=== PATIENT | female | born 1980 | race Caucasian/White ===

== ENCOUNTER 2016-08-05 10:11 | Inpatient (IN) | payer OTHER ==
[~2016-08-05 10:11] MED LIST: D5 1/2 NS 1000 ML 1,000 ML IV ONE; D5 1/2 NS 1000ML W PITOCIN 20 U/L 1,000 ML IV ONE; D5LR 1000ML W PITOCIN 10 U/L 1,000 ML IV ONE; PITOCIN ONE
[2016-08-05] MEDS ORDERED: REGLAN INJ 10 MG VIAL IVP PRN ×2 (10:51→18:51)
[2016-08-05] MEDS ORDERED: MORPHINE SULFATE INJ 2 MG IVP PRN (10:51)
[2016-08-05] MEDS ORDERED: PHENERGAN INJ 25 MG IV PRN ×3 (10:51→18:51)
[2016-08-05] MEDS ORDERED: PITOCIN IVP ONE (10:51)
[2016-08-05] MEDS ORDERED: NUBAIN INJ 200 MG VIAL MULTIDOSE IVP PRN (10:51)
[2016-08-05] MEDS ORDERED: PITOCIN 10 UNITS in D5 LR 1000 ML 1,000 ML IV PRN (10:51)
[2016-08-05] MEDS ORDERED: D5 1/2 NS 1000 ML 1,000 ML IV SCH (11:00)
[2016-08-05] MEDS ORDERED: NAROPIN EPIDURAL 0.2% 97 ML with FENTANYL INJ 250 mcg 150 MCG EPI PRN ×2 (11:25)
[2016-08-05] MEDS ORDERED: LR 1000 ML IV 1,000 ML IV ONE ×2 (11:25→12:58)
[2016-08-05 11:34] LABS: BASOPHILS % (AUTO) 0.5 % (0.2-1.0); EOSINOPHILS # (AUTO) 0.1 x10^3/uL (0.0-0.2); HEMATOCRIT 35.4 % (36.0-47.0); HEMOGLOBIN 11.8 g/dL (12.0-16.0); LYMPHOCYTES % (AUTO) 12.7 % (21.0-51.0); MEAN CORPUSCULAR HEMOGLOBIN 26.3 pg (27.0-34.0); MEAN CORPUSCULAR HGB CONC 33.4 g/dL (33.0-35.0); MEAN PLATELET VOLUME 11.7 fL (7.4-11.0); MONOCYTES # (AUTO) 0.4 x10^3/uL (0.3-0.8); MONOCYTES % (AUTO) 4.9 % (0.0-13.0); NEUTROPHILS # (AUTO) 6.7 x10^3/uL (2.2-4.8); NEUTROPHILS % (AUTO) 80.9 % (42.0-75.0); PLATELET COUNT 105 X10^3/uL (150.0-450.0); RED BLOOD COUNT 4.48 X10^6/uL (3.5-5.4); WHITE BLOOD COUNT 8.3 X10^3/uL (3.6-10.0)
--- NOTE | 2016-08-05 12:06 | DR.OB ---
OB Quick Note - Assessment/Plan Assessment/Plan: L&D 08/05/16 at 12:03pm Pitocin=6mu/min. S-No complaint except CTX. O-Afebrile,VSS MEF=332 with good LTV, +accel, no decel. CTX=q 2 to 2 1/2 min., about 35-45mmHg CVX=3cm/50%/0 A-IUP at 38 4/7 weeks with SROM P-Cont. pitocin augmentation Anticipate
[2016-08-05 12:13] LABS: BLOOD UREA NITROGEN 5 mg/dL (7-18); CALCIUM 8.5 mg/dL (8.5-10.1); CARBON DIOXIDE 21.7 mmol/L (21-32); CHLORIDE 106 mmol/L (98-107); CREATININE 0.61 mg/dL (0.55-1.02); GLUCOSE 83 mg/dL (65-99); SODIUM 140 mmol/L (136-145); eGFR BLACK RACES > 60 (>60); eGFR NON BLACK RACES > 60 (>60)
[2016-08-05] MEDS ORDERED: FENTANYL INJ 100 mcg ONE ×2 (12:57→16:33)
[2016-08-05] MEDS ORDERED: NAROPIN EPIDURAL 0.2% + FENTANYL 90MCG 60 ML EPI ONE (12:57)
[2016-08-05] MEDS ORDERED: NUBAIN INJ 10 ONE (16:14)
[2016-08-05] MEDS ORDERED: MOTRIN TAB 800 MG PO PRN ×2 (17:20→18:51)
--- NOTE | 2016-08-05 17:20 | DR.OB ---
OB Quick Note - Assessment/Plan Assessment/Plan: Delivery Note [employer] 08/05/16 at 5:15pm Patient complete and pushing. Head delivered over intact perineum. No nuchal cord. Nose and mouth bulb suctioned. Body delivered over intact perineum. Cord clamped x 2 and cut. handed to attendant. Cord sent for gases. Placenta delivered spontaneously / intact / 3 vessel cord. No CVX tears noted. A small midline second degree tear noted and repaired with 0-vicryl in usual fashion. Viable female , VTX/OA, wt=8'6" and 9/9, stable to NBN. Mother stable to RR. HXJ=[id number].
[2016-08-05] MEDS ORDERED: D5 1/2 NS 1000 ML 1,000 ML with PITOCIN 20 UNITS IV SCH ×2 (18:00)
[2016-08-05] MEDS ORDERED: ADACEL TDaP IM ONE (18:51)
[2016-08-05] MEDS ORDERED: DERMOPLAST SPRAY TOP PRN (18:51)
[2016-08-05] MEDS ORDERED: MILK OF MAGNESIA PO PRN (18:51)
[2016-08-05] MEDS ORDERED: AMBIEN PO PRN (18:51)
[2016-08-05] MEDS: ZANTAC PO SCH (20:07)
[2016-08-06] MEDS ORDERED: D5 1/2 NS 1000 ML 1,000 ML with PITOCIN 20 UNITS IV SCH ×2 (02:00)
[2016-08-06 05:25] LABS: HEMATOCRIT 33.9 % (36.0-47.0); HEMOGLOBIN 11.1 g/dL (12.0-16.0)
[2016-08-06] MEDS ORDERED: PRENATAL PLUS PO SCH (09:00)
[2016-08-06] MEDS: ZANTAC PO SCH (09:13)
[2016-08-06 17:32] VITALS: BP 128/78
== END 2016-08-06 18:10 | disposition home or self-care (01) | DRG 775 ==
LOC: LD 10:11 → MED/SURG 19:42
PROVIDERS: ADMIT Specialist; ATTEND Specialist
PROC: 10E0XZZ Delivery of Products of Conception, External Approach (ICD-10-PCS; principal; 2016-08-05)
PROC: 0KQM0ZZ Repair Perineum Muscle, Open Approach (ICD-10-PCS; 2016-08-05)
DX: O70.1 Second degree perineal laceration during delivery (principal); Z37.0 Single live birth; O09.523 Supervision of elderly multigravida, third trimester; Z3A.38 38 weeks gestation of pregnancy
CPT/HCPCS: 09167; 36415; 59409; 80048; 85014; 85018; 85025; 86592; 86850; 86900; 86901; A4216; A4222; S0197; J2300; J2590; J3010; J7042; J7120

== ENCOUNTER 2017-12-29 06:24 | Inpatient (IN) ==
[2017-12-29] MEDS ORDERED: ANCEF VIAL 1 GRAM IVP ONE (06:32)
[2017-12-29] MEDS ORDERED: D5 1/2 NS 1000 ML 1,000 ML IV SCH (06:32)
[2017-12-29] MEDS ORDERED: ANCEF 1 GRAM IV PREMIX* 1 G/50 ML BAG IV ONE (06:36)
[2017-12-29] MEDS ORDERED: LR 1000 ML IV 1,000 ML IV ONE (06:48)
[2017-12-29] MEDS ORDERED: DURAMORPH ONE (06:56)
[2017-12-29] MEDS ORDERED: MARCAINE SPINAL ONE (06:57)
[2017-12-29] MEDS ORDERED: XYLOCAINE 1 % (PLAIN) ONE (07:17)
[2017-12-29] MEDS ORDERED: D5 1/2 NS 1L W PITOCIN 20 UNITS/L 20 UNITS/1,000 ML BAG IV ONE (08:25)
[2017-12-29] MEDS ORDERED: DILAUDID INJ IVP PRN (09:03)
[2017-12-29] MEDS ORDERED: PHENERGAN INJ 25 MG IVP PRN (09:03)
[2017-12-29] MEDS ORDERED: BENADRYL INJ 50 MG VIAL IVP PRN ×2 (09:03→09:39)
[2017-12-29] MEDS ORDERED: ZOFRAN INJ 4 MG VIAL IVP PRN ×2 (09:03→09:39)
[2017-12-29] MEDS ORDERED: REGLAN INJ 10 MG VIAL IVP PRN ×2 (09:03→09:39)
[2017-12-29] MEDS ORDERED: MYLICON TAB 80 MG CHEW PO PRN (09:39)
[2017-12-29] MEDS ORDERED: NARCAN INJ IVP PRN (09:39)
[2017-12-29] MEDS ORDERED: TORADOL 30 MG VIAL IVP PRN (09:39)
[2017-12-29] MEDS ORDERED: PERCOCET TAB 5/325 MG PO PRN (09:39)
[2017-12-29] MEDS ORDERED: ADACEL or BOOSTRIX TDaP VACCINE IM ONE (09:39)
[2017-12-29] MEDS ORDERED: D5 1/2 NS 1000 ML 1,000 ML with PITOCIN 20 UNITS IV SCH ×2 (10:00)
[2017-12-29] MEDS ORDERED: EPHEDRINE SULFATE INJ ONE (15:55)
[2017-12-29] MEDS ORDERED: PITOCIN ONE (15:55)
[2017-12-29] MEDS ORDERED: DIPRIVAN VIAL ONE (15:55)
[2017-12-29] MEDS ORDERED: VERSED ONE (15:55)
[2017-12-29] MEDS: MOTRIN TAB 800 MG PO PRN (17:08)
[2017-12-29] MEDS: ZANTAC PO SCH (20:58)
[2017-12-29] MEDS: COLACE CAP 100 MG PO SCH (21:00)
[2017-12-29] MEDS: BACTROBAN CREAM TOP SCH (22:00)
[2017-12-30] MEDS: MOTRIN TAB 800 MG PO PRN (01:17)
[2017-12-30 05:19] LABS: HEMATOCRIT 31.4 % (36.0-47.0)
[2017-12-30 05:41] LABS: HEMOGLOBIN 10.9 g/dL (12.0-16.0)
[2017-12-30] MEDS: BACTROBAN CREAM TOP SCH (06:02)
[2017-12-30] MEDS: COLACE CAP 100 MG PO SCH (08:14)
[2017-12-30] MEDS: ZANTAC PO SCH (08:15)
[2017-12-30] MEDS ORDERED: PRENATAL PLUS PO SCH (09:00)
[2017-12-30 10:26] VITALS: BP 126/71
== END 2017-12-30 11:15 | disposition home or self-care (01) | DRG 766 ==
LOC: LD 06:24 → MED/SURG 09:40
PROVIDERS: ADMIT Specialist; ATTEND Specialist
DX: O32.1XX0 Maternal care for breech presentation, not applicable or unspecified; Z37.0 Single live birth; O09.513 Supervision of elderly primigravida, third trimester; Z3A.40 40 weeks gestation of pregnancy
CPT/HCPCS: 36415; 85014; 85018; A4222; S0197; J0690; J2250; J2590; J2704; J3490; J7120; S5010